=== PATIENT | male | born 1985 | race Caucasian/White ===

== ENCOUNTER → 2024-06-28 | Outpatient (CLI) | payer OTHER ==
[2024-06-28 12:24] LABS: Microalb/Creat Ratio UR, Rand 10.382 mg/g (0.000-30.000); Microalbumin, Random Urine 16.3 mg/L (0.000-20.000)
== END | disposition home or self-care (01) ==
LOC: LAB 10:32 → LAB SHORT 10:32
PROVIDERS: Student in an Organized Health Care Education/Training Program
DX: E11.9 Type 2 diabetes mellitus without complications (principal)
CPT/HCPCS: 82043; 82570